=== PATIENT | male | born 1970 ===

== ENCOUNTER 2018-07-03 07:02 | Day surgery (SDC) | payer BC ==
[~2018-07-03] VITALS: Ht 182.9 cm; Wt 104.3 kg
[2018-07-03] VITALS (11 sets, daily range): BP systolic 116–143; BP diastolic 72–83
--- NOTE | 2018-07-03 06:32 | Anethesia Preoperative Eval ---
Anesthesia Pre-op PMH/ROS General Date of Evaluation: Jul 03, 2018 Time of Evaluation: 06:29 Anesthesiologist: bryan ASA Score: ASA 3 Mallampati Score Class I : Soft palate, uvula, fauces, pillars visible Class II: Soft palate, uvula, fauces visible Class III: Soft palate, base of uvula visible Class IV: Only hard plate visible Mallampati Classification: Class II Surgeon: madhav Diagnosis: abdominal pain, gerd Surgical Procedure: egd/colonoscopy Anesthesia History: none Family History: no anesthesia problems Allergies: Coded Allergies: No Known Allergies (Unverified , 07/02/18) Medications: see eMAR Patient NPO?: Yes Past Medical History Cardiovascular: Reports: HTN, other - hypercholesterolemia Gastrointestinal/Genitourinary: Reports: other - kidney stones Endocrine: Reports: DM Musculoskeletal/Integumentary: Reports: DDD PSxH Narrative: lumbar fusion, colonoscopy Anesthesia Pre-op Phys. Exam Physician Exam Last Vital Signs Date Time Temp Pulse Resp B/P (MAP) Pulse Ox O2 Delivery O2 Flow Rate FiO2 07/03/18 07:38 Room Air 07/03/18 07:31 97.1 81 18 142/83 98 Constitutional: NAD Neurologic: CN 2-12 intact Cardiovascular: RRR Respiratory: CTA Gastrointestinal: S/NT/ND Airway Exam Mallampati Score: Class II MO: limited Neck: flexible TMD: 2fb ROM: limited Anesthesia Pre-op A/P Risk Assessment & Plan Assessment: asa3 Plan: mac Status Change Before Surgery: No Pre-Antibiotics Drug: Diana Abbott MD Jul 03, 2018 06:32
[~2018-07-03 07:02] MED LIST: ATORVASTATIN CA20 MG ORAL; Atropine Inj 1mg/10ml Syr IV PRN; DiphenhydrAMINE 50mg/ml Inj IVP PRN; IBUPROFEN600 MG ORAL; LOSARTAN POTASS50 MG ORAL; METFORMIN HCL500 M1 ORAL; Midazolam 2mg/2ml Inj IVP PRN; fentaNYL 100 mcg/2 mL IV PRN
[2018-07-03] MEDS ORDERED: LR 1000ml ONE (08:00)
[2018-07-03] MEDS ORDERED: Propofol 200mg/20ml IV ONE ×2 (08:00)
[2018-07-03] MEDS ORDERED: Midazolam 2mg/2ml Inj ONE (08:00)
[2018-07-03] MEDS ORDERED: Lidocaine 1% MPF 10mg/ml 5ml ONE ×2 (08:00)
--- NOTE | 2018-07-03 08:56 | Pre-Procedure Note/Attestation ---
Pre-Procedure Note/Attestation Complete Prior to Procedure Planned Procedure: not applicable Procedure Narrative: esophagogastroduodenoscopy and colonoscopy Indications for Procedure Pre-Operative Diagnosis: screening colon, GERD Attestation I attest that I discussed the nature of the procedure; its benefits; risks and complications; and alternatives (and the risks and benefits of such alternatives ), prior to the procedure, with the patient (or the patient's legal pharmacy sales representative). I attest that, if there was a reasonable possibility of needing a blood transfusion, the patient (or the patient's legal pharmacy sales representative) was given the [facility] standardized written summary, pursuant to the [place] [employer] Blood Safety Act ([place] Health and Safety Code # 1645, as amended). I attest that I re-evaluated the patient just prior to the surgery and that there has been no change in the patient's H&P, except as documented below: Jamil Alberto MD Jul 03, 2018 08:56
--- NOTE | 2018-07-03 08:57 | Short Stay Surgery H&P ---
History of Present Illness History of Present Illness Chief Complaint screening colon, GERD HPI Charmaine Santo is a 47 year old male who was admitted on for Abdminal Pain, Gerd Patient History Allergies: Coded Allergies: No Known Allergies (Unverified , 07/02/18) PAST MEDICAL HISTORY: (1) HTN (hypertension) (2) DM Medication History Scheduled Atorvastatin Calcium* (Atorvastatin Calcium*), Unknown Dose ORAL BEDTIME, ( Reported) Losartan Potassium* (Losartan Potassium*), 50 MG ORAL DAILY, (Reported) Metformin Hcl* (Metformin Hcl*), 500 MG ORAL TWICE A DAY, (Reported) Scheduled PRN Ibuprofen* (Motrin*), 600 MG ORAL Q6H PRN for For Pain, (Reported) Review of Systems Cardiovascular: Reports: no symptoms Respiratory: Reports: no symptoms Skeletal: Reports: no symptoms Gastrointestinal: Reports: no symptoms Genitourinary: Reports: no symptoms Neurologic: Reports: no symptoms Endocrine: Reports: no symptoms Physical Exam Vital Signs Last Vital Signs Date Time Temp Pulse Resp B/P (MAP) Pulse Ox O2 Delivery O2 Flow Rate FiO2 07/03/18 07:38 Room Air 07/03/18 07:31 97.1 81 18 142/83 98 Skin: normal HENT: normal Heart: normal Lungs: normal Abdomen: normal Extremities: normal Plan Plan of Care egd/colon Attestation Are the patient's medical conditions optimized for surgery? Attestation Response: yes Jamil Alberto MD Jul 03, 2018 08:57
--- NOTE | 2018-07-03 13:14 | Immediate Post-Op Evaluation ---
Immediate Post-Op Evalulation Immediate Post-Op Evalulation Procedure: egd/colonoscopy Date of Evaluation: Jul 03, 2018 Time of Evaluation: 09:41 IV Fluids: 400ml 0.9ns Blood Products: none Estimated Blood Loss: negligible Blood Pressure Systolic: 116 Blood Pressure Diastolic: 79 Pulse Rate: 89 Respiratory Rate: 18 O2 Sat by Pulse Oximetry: 100 Temperature (Fahrenheit): 97.1 Pain Score (1-10): 0 Nausea: No Vomiting: No Complications none Patient Status: awake, reacts, patent Hydration Status: adequate Drug: Diana Abbott MD Jul 03, 2018 13:14
--- NOTE | 2018-07-03 13:15 | 48 Hour Post Anesthesia Eval ---
Post Anesthesia Evaluation Procedure: egd/colonoscopy Date of Evaluation: Jul 03, 2018 Time of Evaluation: 09:43 Blood Pressure Systolic: 124 0: 72 Pulse Rate: 78 Respiratory Rate: 18 Temperature (Fahrenheit): 97.1 O2 Sat by Pulse Oximetry: 100 Airway: patent Nausea: No Vomiting: No Pain Intensity: 0 Hydration Status: adequate Cardiopulmonary Status: stable Mental Status/LOC: patient returned to baseline Post-Anesthesia Complications: none Follow-up care needed: N/A Diana Ramirez MD Jul 03, 2018 13:15
--- NOTE | 2018-07-03 15:30 | Procedure Note ---
DATE OF PROCEDURE: 07/03/2018 SURGEON: Jamil Alberto M.D. PROCEDURE: Upper endoscopy with biopsy and colonoscopy. ANESTHESIA: Per Dr. Galvan. INSTRUMENT: Olympus adult flexible upper endoscope and colonoscope. INDICATION: Screening colonoscopy, abdominal pain, chronic GERD. REASON FOR PROCEDURE: The procedure, risks, benefits, and possible consequences, including hemorrhage, aspiration, perforation and infection, and alternative treatments, were explained to the patient/legal guardian by Dr. Jamil Alberto and the patient/legal guardian understood and accepted these risks. PROCEDURE IN DETAIL: After informed consent was obtained and the patient was adequately sedated, the Olympus upper endoscope was advanced from mouth into the second portion of duodenum and retroflexion was performed in the stomach. The patient had evidence of diffuse gastritis. Random biopsy from antrum and body was obtained to rule out H. pylori infection. GE junction was found to be about 40 cm from the incisors. There was some irregularity at the Z-line but without any significant esophagitis. At this time, the upper endoscope was retrieved. The patient was turned over for colonoscopy. First, rectal exam was performed which was normal. Then, the scope was advanced from rectum into the cecum and then subsequently to terminal ileum. Unfortunately examination of cecum and proximal ascending colon was limited given the of solid stool was covering those areas. The rest of the examination grossly looked within normal limits. There was no obvious mass or polyp seen. There was one single diverticula in the left colon. Retroflexion of rectum showed evidence of medium-sized nonbleeding internal hemorrhoids. SUMMARY OF FINDINGS: 1. Gastritis, status post biopsy. 2. Poor prep at the cecum and proximal ascending colon. 3. One single diverticula in the left colon. 4. Internal hemorrhoids. RECOMMENDATIONS: 1. Follow up biopsy results and treat accordingly. 2. Given this prep, we will recommend repeat colonoscopy at least in 5 years. I want to Dr. Nya Centeno, for this kind referral. Jamil Alberto M.D. DR: Alexis JOB#: [id number] CC: Nya Centeno M.D.; Fax#: [phone]
== END 2018-07-03 10:55 | disposition home or self-care (01) ==
LOC: GAS 07:02
DX: Z12.11 Encounter for screening for malignant neoplasm of colon (principal); K57.30 Diverticulosis of large intestine without perforation or abscess without bleeding; K64.8 Other hemorrhoids; K29.70 Gastritis, unspecified, without bleeding; I10 Essential (primary) hypertension; E11.9 Type 2 diabetes mellitus without complications; E78.00 Pure hypercholesterolemia, unspecified
CPT/HCPCS: 43239; 45378; 82962; J2704; 94003; 94150; J2250